=== PATIENT | female | born 1945 | race Hispanic/Latino ===

== ENCOUNTER 2017-11-14 09:26 | Observation (INO) | payer MEDICARE, OTHER ==
--- NOTE | 2017-11-14 10:51 | RAD ---
Date of service: 11/14/2017 HISTORY: hx of anemia COMPARISON: No prior. FINDINGS: LUNGS: No active pulmonary disease. PLEURA: No significant pleural effusion identified, no pneumothorax apparent. CARDIOVASCULAR: Normal. OSSEOUS STRUCTURES: No significant abnormalities. VISUALIZED UPPER ABDOMEN: Normal. OTHER FINDINGS: None. IMPRESSION: No active disease.
--- NOTE | 2017-11-14 10:51 | ED PDOC ---
Arrival/HPI - General Chief Complaint: Abnormal Labs Time Seen by Provider: 11/14/17 09:35 Historian: Patient - History of Present Illness Narrative History of Present Illness (Text): 11/14/17 10:49 72-year-old female sent in by her primary care physician Dr. Galo for evaluation of low hemoglobin. Patient denies chest pain or shortness of breath. She denies fevers or chills. She denies dizziness or weakness. She denies nausea vomiting diarrhea or constipation. She denies bloody stools. She denies dark tarry stools. Patient denies dyspnea on exertion. Patient denies any complaints. Past Medical History - Provider Review Nursing Documentation Reviewed: Yes - Travel History Have you recently traveled outside [place] w/in the past 3 mons?: No - Cardiac Hx Cardiac Disorders: Yes Hx Hypertension: Yes - Pulmonary Hx Respiratory Disorders: Yes Hx Chronic Obstructive Pulmonary Disease (COPD): Yes - Neurological Hx Neurological Disorder: No - HEENT Hx HEENT Disorder: No - Renal Hx Renal Disorder: No - Endocrine/Metabolic Hx Endocrine Disorders: No - Hematological/Oncological Hx Blood Disorders: No - Integumentary Hx Dermatological Disorder: No - Musculoskeletal/Rheumatological Hx Musculoskeletal Disorders: Yes Other/Comment: L LEG PAIN - Gastrointestinal Hx Gastrointestinal Disorders: No - Genitourinary/Gynecological Hx Genitourinary Disorders: No - Psychiatric Hx Psychophysiologic Disorder: No Hx Physical Abuse: No Hx Substance Use: No - Surgical History Hx Coronary Stent: Yes Hx Hysterectomy: Yes - Anesthesia Hx Anesthesia: Yes - Suicidal Assessment Feels Threatened In Home Enviroment: No Family/Social History - Physician Review Nursing Documentation Reviewed: Yes Family/Social History: Unknown Family HX Smoking Status: Light Smoker < 10 Cigarettes Daily Hx Alcohol Use: No Hx Substance Use: No Allergies/Home Meds Allergies/Adverse Reactions: Allergies No Known Allergies Allergy (Verified 11/14/17 09:51) Home Medications: Home Meds Medication Instructions Recorded Confirmed Aspirin [Adult Low Dose Aspirin EC] 1 tab PO DAILY 11/14/17 11/14/17 No Known Home Med 11/14/17 11/14/17 Review of Systems - Review of Systems Constitutional: absent: Fatigue, Fevers Respiratory: absent: SOB, Cough Cardiovascular: absent: Chest Pain, Palpitations Gastrointestinal: absent: Abdominal Pain, Stool Changes, Constipation, Diarrhea , Nausea, Vomiting Genitourinary Female: absent: Hematuria Musculoskeletal: absent: Arthralgias, Back Pain, Neck Pain Skin: absent: Rash, Pruritis Neurological: absent: Headache, Dizziness Psychiatric: absent: Anxiety, Depression Physical Exam Vital Signs Reviewed: Yes Vital Signs Temp Pulse Resp BP Pulse Ox 11/14/17 09:52 98.6 F 83 17 127/69 100 Temperature: Afebrile Blood Pressure: Normal Pulse: Regular Respiratory Rate: Normal Appearance: Positive for: Well-Appearing, Non-Toxic, Comfortable Pain Distress: None Mental Status: Positive for: Alert and Oriented X 3 - Systems Exam Head: Present: Atraumatic Neck: Present: Normal Range of Motion Respiratory/Chest: Present: Clear to Auscultation, Good Air Exchange. No: Respiratory Distress, Accessory Muscle Use Cardiovascular: Present: Regular Rate and Rhythm, Normal S1, S2. No: Murmurs Abdomen: No: Tenderness, Rebound, Guarding Rectal: Present: Normal Rectal Tone. No: Occult Blood, Rectal Tenderness, Gross Blood, Melena Back: Present: Normal Inspection Upper Extremity: Present: Normal ROM Lower Extremity: Present: Normal ROM Neurological: Present: GCS=15, Speech Normal Skin: Present: Warm, Dry, Normal Color. No: Rashes Psychiatric: Present: Alert, Oriented x 3 Medical Decision Making ED Course and Treatment: 11/14/17 10:51 72yr old female sent in by PMD for anemia cbc hbg;7.6 cmp wnl INR cxr; wnl ekg; normal sinus rhythm at 76 bpm normal axis normal intervals no ST elevations ua; + leukocytes. pt with hemoglobin of: 7.6. Heme negative stools. Sent for blood transfusion obtained transfuse the patient 2 units. Patient was found to have UTI we'll give a dose of Rocephin IV. Case was discussed with Dr. Martin in depth excepts observational status admission for anemia. impression; anemia, UTI admit observational status to med/surg - Lab Interpretations Lab Results: 11/14/17 10:50 11/14/17 10:50 Lab Results 11/14/17 11:55: Urine Color Yellow, Urine Appearance Clear, Urine pH 5.5, Ur Specific Ray 1.015, Urine Protein Negative, Urine Glucose (UA) Negative, Urine Ketones Negative, Urine Blood Negative, Urine Nitrate Negative, Urine Bilirubin Negative, Urine Urobilinogen 0.2, Ur Leukocyte Esterase Moderate H, Urine RBC TEST NOT PERFORMED, Urine WBC 15 - 20, Ur Epithelial Cells 3 - 4, Urine Bacteria Mod 11/14/17 10:50: WBC 5.7, RBC 3.74, Hgb 7.6 L, Hct 26.7 L, MCV 71.4 L, MCH 20.3 L , MCHC 28.5 L, RDW 18.7 H, Plt Count 299, MPV 9.0, Gran % 79.3 H, Lymph % (Auto ) 13.9 L, [place] % (Auto) 4.7, Eos % (Auto) 1.4 L, Baso % (Auto) 0.7, Gran # 4.52 , Lymph # (Auto) 0.8 L, [place] # (Auto) 0.3, Eos # (Auto) 0.1, Baso # (Auto) 0.04 11/14/17 10:50: Blood Type Pending, Antibody Screen Pending, Crossmatch See Detail, BBK History Checked Patient has bt 11/14/17 10:50: Sodium 138, Potassium 5.0, Chloride 109 H, Carbon Dioxide 22, Anion Gap 13, BUN 13, Creatinine 0.6 L, Est GFR ( Amer) > 60, Est GFR ( Non-Af Amer) > 60, Random Glucose 98, Calcium 9.3, Total Bilirubin 0.4, AST 29, ALT 26, Alkaline Phosphatase 68, Lactate Dehydrogenase 634, Total Creatine Kinase 35, Troponin I < 0.01, Total Protein 6.5, Albumin 3.8, Globulin 2.6, Albumin/Globulin Ratio 1.5 11/14/17 10:50: PT 12.1, INR 1.05, APTT 25.9 - RAD Interpretation Radiology Orders: 11/14/17 10:12 CHEST PORTABLE [RAD] Stat - Medication Orders Current Medication Orders: Discontinued Medications Ceftriaxone Sodium (Rocephin 1 Gram Ivpb) 1 gm in 100 mls @ 200 mls/hr IVPB STAT STA PRN Reason: Protocol Stop: 11/14/17 13:11 Disposition/Present on Arrival - Present on Arrival Any Indicators Present on Arrival: No History of DVT/PE: No History of Uncontrolled Diabetes: No Urinary Catheter: No History of Decub. Ulcer: No History Surgical Site Infection Following: None - Disposition Have Diagnosis and Disposition been Completed?: Yes Diagnosis: Anemia, Urinary tract infection Disposition: HOSPITALIZED Disposition Time: 12:40 Patient Plan: Observation Condition: FAIR
[2017-11-14 11:05] LABS: BASO # 0.04 K/mm3 (0.0-2.0); BASO % 0.7 % (0.0-3.0); EOS # 0.1 (0.0-0.7); EOS % 1.4 % (1.5-5.0); GRAN # 4.52 (1.4-6.5); GRAN % 79.3 % (50.0-68.0); HEMOGLOBIN 7.6 g/dL (12.0-16.0); LYMPH # 0.8 (1.2-3.4); LYMPH % 13.9 % (22.0-35.0); MEAN CELL VOLUME 71.4 fl (80.0-105.0); MEAN CORPUSCULAR HEMOGLOBIN 20.3 pg (25.0-35.0); MEAN CORPUSCULAR HGB CONC 28.5 g/dl (31.0-37.0); MONO # 0.3 (0.1-0.6); MONO % 4.7 % (1.0-6.0); RBC 3.74 10^6/uL (3.5-6.1); RED CELL DISTRIBUTION WIDTH 18.7 % (11.5-14.5); WHITE BLOOD COUNT 5.7 10^3/ul (4.5-11.0)
[2017-11-14 11:15] LABS: INR 1.05; PARTIAL THROMBOPLASTIN TIME 25.9 Seconds (25.1-36.5); PROTHROMBIN TIME 12.1 SECONDS (9.4-12.5)
[2017-11-14 11:17] LABS: ALB/GLOB RATIO 1.5 (1.1-1.8); ALBUMIN 3.8 g/dL (3.0-4.8); BLOOD UREA NITROGEN 13 mg/dL (7-21); CALCIUM 9.3 mg/dL (8.4-10.5); GFR NON-AFRICAN AMERICAN > 60
[2017-11-14 11:21] LABS: ALT/SGPT 26 U/L (7-56); AST/SGOT 29 U/L (14-36)
[2017-11-14 11:28] LABS: TROPONIN I < 0.01 ng/mL
[2017-11-14 12:25] LABS: PH,URINE 5.5 (4.7-8.0); URINE BILIRUBIN NEGATIVE (NEGATIVE); URINE BLOOD NEGATIVE (NEGATIVE); URINE GLUCOSE (UA) NEGATIVE (NEGATIVE); URINE LEUKOCYTE ESTERASE MODERATE Leu/uL (NEGATIVE); URINE PROTEIN NEGATIVE mg/dL (<30 mg/dL); URINE UROBILINOGEN 0.2 E.U./dL (<1 E.U./dL)
[2017-11-14 12:26] LABS: URINE APPEARANCE CLEAR (CLEAR); URINE COLOR YELLOW (YELLOW)
[2017-11-14 12:29] LABS: URINE BACTERIA MOD (NEG); URINE WBC 15 - 20 /hpf (0-6)
[2017-11-14] MEDS ORDERED: cefTRIAXone 1 gm 1 GM/100 ML BAG IVPB STA (12:42)
[2017-11-14] MEDS ORDERED: Midazolam 2 MG/2 ML VIAL ONE (15:57)
[2017-11-14 16:50] VITALS: BMI 20.5
--- NOTE | 2017-11-14 20:51 | CARD ---
APPROVED REPORT Date of service: 11/14/2017 EKG Measurement Heart [id number] <Conclusion> Normal sinus rhythm Normal ECG
[2017-11-15 04:48] VITALS: RESP 18
[2017-11-15 06:46] VITALS: BP 136/73; PULSE 80; TEMP 97.8
--- NOTE | 2017-11-15 07:22 | CP.PCM.CON ---
<Renato Faust - Last Filed: 11/15/17 10:59> History of Present Illness - History of Present Illness History of Present Illness: GI Consult Note for Dr. Jacob's Service - Edwina PGY2 Reason for Consult: Anemia Mrs. Quintero is a 72 year old male with a past medical history significant for CAD s/p four NADEEN (last in 2012), HTN, HLD, COPD and tobacco abuse who presents after being found to have a low hemoglobin at her PMD's office. GI was consulted for evaluation for GI hemorrhage. Patient reports that she was seen in her PMD's office for routine health maintenance, which she admits that she does not do frequently, and was told that she had a low hemoglobin and should be seen in the ED for further evaluation. She denies ever being told that she was anemic in the past. She has never had an EGD or colonoscopy in the past because she refuses to have these done, including during this admission. Patient reports that she was offered Cologaurd as well but was unable to complete this. Currently, she denies illness, recent travel, sick contacts, weight loss, night sweats, fevers, chills, headache, lightheadedness, changes in vision, chest pain, SOB, abdominal pain, N/V/D/C, melena, hematemesis, changes in urine output, skin changes or any numbness/tingling/weakness of any extremity. PMH: CAD s/p four NADEEN (last in 2012), HTN, HLD, COPD and tobacco abuse PSH: Hysterectomy, Cardiac Cath Family History: CAD, HTN and DM2 Social History: Current smoker with 40 year pack smoking history: Denies any alcohol or illicit drug use Allergies: NKDA Home Medications: ASA and Nicoderm CQ PMD: Dr. Galo Review of Systems - Review of Systems Review of Systems: As stated in HPI, otherwise negative Past Patient History - Past Social History Smoking Status: Current Some Days Smoker - CARDIAC Hx Cardiac Disorders: Yes Hx Hypercholesterolemia: Yes Hx Hypertension: Yes Other/Comment: angioplasty/CAD - PULMONARY Hx Respiratory Disorders: Yes Hx Chronic Obstructive Pulmonary Disease (COPD): Yes Other/Comment: smoking 10-15 cig a day - NEUROLOGICAL Hx Neurological Disorder: No - HEENT Hx HEENT Problems: No - RENAL Hx Chronic Kidney Disease: No - ENDOCRINE/METABOLIC Hx Endocrine Disorders: No - HEMATOLOGICAL/ONCOLOGICAL Hx Blood Disorders: No Hx Anemia: Yes - INTEGUMENTARY Hx Dermatological Problems: No - MUSCULOSKELETAL/RHEUMATOLOGICAL Hx Musculoskeletal Disorders: No Hx Falls: No - GASTROINTESTINAL Hx Gastrointestinal Disorders: No - GENITOURINARY/GYNECOLOGICAL Hx Genitourinary Disorders: No Other/Comment: hysterectomy - PSYCHIATRIC Hx Psychophysiologic Disorder: No Hx Physical Abuse: No - SURGICAL HISTORY Hx Surgeries: Yes Hx Cardiac Catheterization: Yes Hx Coronary Stent: Yes Hx Hysterectomy: Yes Other/Comment: Angioplast with multiple stents insertion Left Anterior Descending Artery - ANESTHESIA Hx Anesthesia: Yes Meds Home Medications: Home Medication List Medication Instructions Recorded Confirmed Type Nicotine 7 mg/24 hr [Nicoderm CQ] 1 patch TD DAILY patch 11/15/17 Rx Allergies/Adverse Reactions: Allergies Allergy/AdvReac Type Severity Reaction Status Date / Time No Known Allergies Allergy Verified 11/14/17 09:51 - Medications Medications: Current Medications Nicotine (Nicoderm Cq) 1 patch TD DAILY SONNY Physical Exam - Constitutional Appears: Non-toxic, No Acute Distress - Head Exam Head Exam: ATRAUMATIC, NORMOCEPHALIC - Eye Exam Eye Exam: EOMI - Neck Exam Neck exam: Positive for: Full Rom - Respiratory Exam Respiratory Exam: NORMAL BREATHING PATTERN. absent: Accessory Muscle Use, Respiratory Distress - Cardiovascular Exam Cardiovascular Exam: +S1, +S2 - GI/Abdominal Exam GI & Abdominal Exam: Normal Bowel Sounds, Soft. absent: Bruit, Diminished Bowel Sounds, Distended, Firm, Guarding, Hernia, Hyperactive Bowel Sounds, Hypoactive Bowel Sounds, Mass, Organomegaly, Pulsatile Mass, Rebound, Rigid, Tenderness - Rectal Exam Rectal Exam: Deferred - Extremities Exam Extremities exam: Negative for: calf tenderness - Neurological Exam Neurological exam: Alert, Oriented x3 - Psychiatric Exam Psychiatric exam: Normal Affect, Normal Mood - Skin Skin Exam: Dry, Intact, Normal Color, Warm Results - Vital Signs Recent Vital Signs: Last Vital Signs Temp 97.8 F 11/15/17 06:45 Pulse 80 11/15/17 06:45 Resp 18 11/15/17 06:45 BP 136/73 11/15/17 06:45 Pulse Ox 100 11/14/17 16:01 - Labs Result Diagrams: 11/15/17 08:26 11/15/17 08:30 Assessment & Plan - Assessment and Plan (Free Text) Assessment: 72 year old male with a past medical history significant for CAD s/p four NADEEN ( last in 2012), HTN, HLD, COPD and tobacco abuse who presents after being found to have a low hemoglobin at her PMD's office. GI was consulted for evaluation for GI hemorrhage. Plan: -H/H 7.6/26.7 on admission -AM H/H at 10.1/33.7 s/p two units of pRBC's -Hemodynamically stable and VSS -FOBT negative -Heart Healthy Diet -CEA elevation noted GI Disposition: Patient refusing endoscopic work up at this time. After discussion with patient and patients primary, patient should have GI followup as an outpatient and be scheduled for outpatient EGD/Colonoscopy as soon as possible. The importance of this was stressed to the patient with patient verbally understanding and agreeing to do so. Patient seen and case discussed with attending, Dr. Jacob. - Date & Time Date: 11/15/17 Time: 07:21 <Srinivasan Jacob V - Last Filed: 11/15/17 23:38> Results - Vital Signs Recent Vital Signs: Last Vital Signs Temp 97.8 F 11/15/17 06:45 Pulse 80 11/15/17 06:45 Resp 18 11/15/17 06:45 BP 136/73 11/15/17 06:45 Pulse Ox 98 11/15/17 06:00 - Labs Result Diagrams: 11/15/17 08:26 11/15/17 08:30 Labs: Laboratory Results - last 24 hr 11/15/17 11/15/17 11/15/17 08:00 08:00 08:00 WBC RBC Hgb Hct MCV MCH MCHC RDW Plt Count MPV Gran % Lymph % (Auto) [place] % (Auto) Eos % (Auto) Baso % (Auto) Gran # Lymph # (Auto) [place] # (Auto) Eos # (Auto) Baso # (Auto) PT INR APTT Sodium Potassium Chloride Carbon Dioxide Anion Gap BUN Creatinine Est GFR ( Amer) Est GFR (Non-Af Amer) Random Glucose Calcium Iron 87 TIBC 434 % Saturation 20 Ferritin 8.1 Total Bilirubin AST ALT Alkaline Phosphatase Total Protein Albumin Globulin Albumin/Globulin Ratio Carcinoembryonic Ag 5.5 H Vitamin B12 Folate 11/15/17 11/15/17 11/15/17 08:00 08:26 08:30 WBC 4.6 RBC 4.50 Hgb 10.1 L D Hct 33.7 L MCV 74.9 L D MCH 22.4 L MCHC 30.0 L RDW 19.8 H Plt Count 258 MPV 8.9 Gran % 73.4 H Lymph % (Auto) 14.9 L [place] % (Auto) 8.1 H Eos % (Auto) 2.9 Baso % (Auto) 0.7 Gran # 3.34 Lymph # (Auto) 0.7 L [place] # (Auto) 0.4 Eos # (Auto) 0.1 Baso # (Auto) 0.03 PT INR APTT Sodium 140 Potassium 4.1 Chloride 107 Carbon Dioxide 23 Anion Gap 14 BUN 11 Creatinine 0.6 L Est GFR ( Amer) > 60 Est GFR (Non-Af Amer) > 60 Random Glucose 102 Calcium 9.1 Iron TIBC % Saturation Ferritin Total Bilirubin 0.8 AST 26 ALT 25 Alkaline Phosphatase 77 Total Protein 7.2 Albumin 4.2 Globulin 3.0 Albumin/Globulin Ratio 1.4 Carcinoembryonic Ag Vitamin B12 513 Folate 12.3 11/15/17 10:50 WBC RBC Hgb Hct MCV MCH MCHC RDW Plt Count MPV Gran % Lymph % (Auto) [place] % (Auto) Eos % (Auto) Baso % (Auto) Gran # Lymph # (Auto) [place] # (Auto) Eos # (Auto) Baso # (Auto) PT 12.3 INR 1.07 APTT 27.7 Sodium Potassium Chloride Carbon Dioxide Anion Gap BUN Creatinine Est GFR ( Amer) Est GFR (Non-Af Amer) Random Glucose Calcium Iron TIBC % Saturation Ferritin Total Bilirubin AST ALT Alkaline Phosphatase Total Protein Albumin Globulin Albumin/Globulin Ratio Carcinoembryonic Ag Vitamin B12 Folate Attending/Attestation - Attestation I have personally seen and examined this patient.: Yes I have fully participated in the care of the patient.: Yes I have reviewed all pertinent clinical information: Yes Notes (Text): This is an addendum to GI consult report dictated by the Band Edger.The patient was seen and evaluated earlier. Medical records, lab studies, imagings were reviewed. Last 24 hours events reviewed. Agreed with the above treatment plan as outlined in Band Edger 's notes with the addition of the following This patient refused CAT scan endoscopy and colonoscopy Risk of cancer explained Patient fully understood She did not want to go through further testing 11/15/17 23:37
[2017-11-15 08:15] VITALS: O2SAT 98
[2017-11-15 08:36] LABS: BASO # 0.03 K/mm3 (0.0-2.0); BASO % 0.7 % (0.0-3.0); EOS # 0.1 (0.0-0.7); EOS % 2.9 % (1.5-5.0); GRAN # 3.34 (1.4-6.5); GRAN % 73.4 % (50.0-68.0); HEMOGLOBIN 10.1 g/dL (12.0-16.0); LYMPH # 0.7 (1.2-3.4); LYMPH % 14.9 % (22.0-35.0); MEAN CELL VOLUME 74.9 fl (80.0-105.0); MEAN CORPUSCULAR HEMOGLOBIN 22.4 pg (25.0-35.0); MEAN PLATELET VOLUME 8.9 fl (7.0-11.0); MONO # 0.4 (0.1-0.6); MONO % 8.1 % (1.0-6.0); RBC 4.5 10^6/uL (3.5-6.1); RED CELL DISTRIBUTION WIDTH 19.8 % (11.5-14.5); WHITE BLOOD COUNT 4.6 10^3/ul (4.5-11.0)
[2017-11-15 08:47] LABS: IRON 87 ug/dL (45-180)
[2017-11-15 08:48] LABS: ALB/GLOB RATIO 1.4 (1.1-1.8); ALBUMIN 4.2 g/dL (3.0-4.8); ALT/SGPT 25 U/L (7-56); AST/SGOT 26 U/L (14-36); BLOOD UREA NITROGEN 11 mg/dL (7-21); CALCIUM 9.1 mg/dL (8.4-10.5); GFR NON-AFRICAN AMERICAN > 60
[2017-11-15 08:56] LABS: % IRON SATURATION 20 % (20-55); TOTAL IRON BINDING CAPACITY 434 ug/dL (265-497)
--- NOTE | 2017-11-15 09:56 | CON ---
DATE: 11/15/2017 CONSULT REQUESTED BY: Delgado Martin MD. HISTORY OF PRESENT ILLNESS: Ms. Quintero is a 72-year-old female, referred to ED by Dr. Galo for severe anemia. Hemoglobin was 7.6 in the ED. Denies any bleeding per rectum. No nausea. No vomiting. No chills. No rigors. No exertional dyspnea. PAST MEDICAL HISTORY: Hypertension, COPD. PAST SURGICAL HISTORY: Coronary artery stent placement, hysterectomy. PERSONAL HISTORY: Light smoker. No history of alcohol abuse. FAMILY HISTORY: Not contributory. ALLERGIES: NO KNOWN DRUG ALLERGIES. HOME MEDICATIONS: Aspirin. REVIEW OF SYSTEMS: As per HPI. Rest of 12-point review of systems reviewed negative. PHYSICAL EXAMINATION: GENERAL: Comfortable in bed, in no acute distress. VITAL SIGNS: Temperature 98.6, heart rate 83 per minute, respiratory rate 17 per minute, blood pressure 127/69, pulse ox is 100% on room air. HEENT: Pallor positive. NECK: No lymphadenopathy. CHEST: Air entry present and equal, bilateral. No added sounds. CARDIOVASCULAR: S1 and S2 normal. No murmur. No gallop. ABDOMEN: Soft, nontender. No hepatosplenomegaly. EXTREMITY: No edema. SKIN: Warm, dry. Normal. SPINE: Nontender. NEUROLOGIC: Alert and oriented x3. No focal sensorimotor deficit. LABORATORY DATA: Last white count 12.6, hemoglobin 7.6, hematocrit 26.7, MCV 71, platelet 299. Hemoglobin improved to 10.1 today after 2 units of blood transfusion. Sodium 140, potassium 4.1, creatinine 0.8, iron 87, iron saturation 20, total bilirubin 0.8. MEDICATIONS: Nicoderm patch, received one dose of ceftriaxone. ASSESSMENT AND PLAN: Severe anemia, microcytic. Iron studies within normal limits. Received 2 units of blood transfusion. Hemoglobin improved to 10. Antibody screen positive. She needs compatible blood. Transfusion done yesterday. No reaction. Stool occult blood. GI consultation, Dr. Jacob requested for severe anemia. B12, folate level to be done. Iron studies within normal limits. We will repeat the iron studies. Clinical picture is consistent with the iron-deficiency anemia. It is microcytic. Blood pressure controlled. History of hypertension, not on any medications. Aspirin on hold for severe anemia. We will continue to follow closely. We will also do a CEA. Thank you, Dr. Martin for allowing us to participate in Ms. Quintero's care. Nathaila Dahl MD [facility]
[2017-11-15 11:20] LABS: INR 1.07; PARTIAL THROMBOPLASTIN TIME 27.7 Seconds (25.1-36.5); PROTHROMBIN TIME 12.3 SECONDS (9.4-12.5)
--- NOTE | 2017-11-15 15:36 | CP.PCM.HP ---
<Joey Powers - Last Filed: 11/15/17 15:38> History of Present Illness - History of Present Illness History of Present Illness: 72 year old female with past medical history of CAD s/p stent placement, HLD, and HTN presents to the hospital after low hemoglobin found on outpatient blood work. Patient came to ED with low hemoglobin. Patient was given 2 units of blood in ED. Patient states at home, she did not feel any symptoms. Patient denied chest pain, shortness of breath, syncope, palpitations, nausea, vomiting , diarrhea, fever, chills, changes in vision, dysuria. PMH: CAD s/p four NADEEN (last in 2012), HTN, HLD PSH: Hysterectomy, Cardiac Cath Family History: CAD, HTN and DM2 Social History: Current smoker with 40 year pack smoking history. Denies alcohol or illicit drug use Allergies: NKDA Medications: ASA Present on Admission - Present on Admission Any Indicators Present on Admission: No Review of Systems - Review of Systems Review of Systems: 12 point ROS as per HPI, otherwise negative Past Patient History - Past Social History Smoking Status: Current Some Days Smoker - CARDIAC Hx Cardiac Disorders: Yes Hx Hypercholesterolemia: Yes Hx Hypertension: Yes Other/Comment: angioplasty/CAD - PULMONARY Hx Respiratory Disorders: Yes Hx Chronic Obstructive Pulmonary Disease (COPD): Yes Other/Comment: smoking 10-15 cig a day - NEUROLOGICAL Hx Neurological Disorder: No - HEENT Hx HEENT Problems: No - RENAL Hx Chronic Kidney Disease: No - ENDOCRINE/METABOLIC Hx Endocrine Disorders: No - HEMATOLOGICAL/ONCOLOGICAL Hx Blood Disorders: No Hx Anemia: Yes - INTEGUMENTARY Hx Dermatological Problems: No - MUSCULOSKELETAL/RHEUMATOLOGICAL Hx Musculoskeletal Disorders: No Hx Falls: No - GASTROINTESTINAL Hx Gastrointestinal Disorders: No - GENITOURINARY/GYNECOLOGICAL Hx Genitourinary Disorders: No Other/Comment: hysterectomy - PSYCHIATRIC Hx Psychophysiologic Disorder: No Hx Physical Abuse: No - SURGICAL HISTORY Hx Surgeries: Yes Hx Cardiac Catheterization: Yes Hx Coronary Stent: Yes Hx Hysterectomy: Yes Other/Comment: Angioplast with multiple stents insertion Left Anterior Descending Artery - ANESTHESIA Hx Anesthesia: Yes Meds Home Medications: Home Medication List Medication Instructions Recorded Confirmed Type Nicotine 7 mg/24 hr [Nicoderm CQ] 1 patch TD DAILY patch 11/15/17 Rx Allergies/Adverse Reactions: Allergies Allergy/AdvReac Type Severity Reaction Status Date / Time No Known Allergies Allergy Verified 11/14/17 09:51 Physical Exam - Constitutional Appears: Non-toxic, No Acute Distress - Head Exam Head Exam: ATRAUMATIC, NORMAL INSPECTION, NORMOCEPHALIC - Eye Exam Eye Exam: EOMI, Normal appearance - ENT Exam ENT Exam: Mucous Membranes Moist, Normal Exam - Respiratory Exam Respiratory Exam: Clear to Auscultation Bilateral, NORMAL BREATHING PATTERN - Cardiovascular Exam Cardiovascular Exam: RRR, +S1, +S2 - GI/Abdominal Exam GI & Abdominal Exam: Normal Bowel Sounds, Soft. absent: Tenderness - Extremities Exam Extremities exam: Positive for: normal inspection. Negative for: calf tenderness, pedal edema - Neurological Exam Neurological exam: Alert, CN II-XII Intact, Oriented x3 - Psychiatric Exam Psychiatric exam: Normal Affect, Normal Mood - Skin Skin Exam: Intact, Normal Color, Warm Results - Vital Signs Recent Vital Signs: Last Vital Signs Temp 97.8 F 11/15/17 06:45 Pulse 80 11/15/17 06:45 Resp 18 11/15/17 06:45 BP 136/73 11/15/17 06:45 Pulse Ox 98 11/15/17 06:00 - Labs Result Diagrams: 11/15/17 08:26 11/15/17 08:30 Labs: Laboratory Results - last 24 hr 11/15/17 11/15/17 11/15/17 08:00 08:00 08:00 WBC RBC Hgb Hct MCV MCH MCHC RDW Plt Count MPV Gran % Lymph % (Auto) [place] % (Auto) Eos % (Auto) Baso % (Auto) Gran # Lymph # (Auto) [place] # (Auto) Eos # (Auto) Baso # (Auto) PT INR APTT Sodium Potassium Chloride Carbon Dioxide Anion Gap BUN Creatinine Est GFR ( Amer) Est GFR (Non-Af Amer) Random Glucose Calcium Iron 87 TIBC 434 % Saturation 20 Ferritin 8.1 Total Bilirubin AST ALT Alkaline Phosphatase Total Protein Albumin Globulin Albumin/Globulin Ratio Carcinoembryonic Ag 5.5 H 11/15/17 11/15/17 11/15/17 08:26 08:30 10:50 WBC 4.6 RBC 4.50 Hgb 10.1 L D Hct 33.7 L MCV 74.9 L D MCH 22.4 L MCHC 30.0 L RDW 19.8 H Plt Count 258 MPV 8.9 Gran % 73.4 H Lymph % (Auto) 14.9 L [place] % (Auto) 8.1 H Eos % (Auto) 2.9 Baso % (Auto) 0.7 Gran # 3.34 Lymph # (Auto) 0.7 L [place] # (Auto) 0.4 Eos # (Auto) 0.1 Baso # (Auto) 0.03 PT 12.3 INR 1.07 APTT 27.7 Sodium 140 Potassium 4.1 Chloride 107 Carbon Dioxide 23 Anion Gap 14 BUN 11 Creatinine 0.6 L Est GFR ( Amer) > 60 Est GFR (Non-Af Amer) > 60 Random Glucose 102 Calcium 9.1 Iron TIBC % Saturation Ferritin Total Bilirubin 0.8 AST 26 ALT 25 Alkaline Phosphatase 77 Total Protein 7.2 Albumin 4.2 Globulin 3.0 Albumin/Globulin Ratio 1.4 Carcinoembryonic Ag Assessment & Plan - Assessment and Plan (Free Text) Plan: 1. Microcytic anemia s/p transfusion 2. HTN 3. HLD 4. Tobacco use 5. Noncompliance Patient received units 2 of PRBC's in the ED and responded appropriately. Previous discharge summaries and labs reviewed. Discussed with patient this morning about the possibility of endoscopic interventions to check for any signs of bleeding. Patient states she will not have any EGD's or colonoscopies. She states she understands the consequences of possible cancer, infection, or that are involved with no obtaining these studies. Patient will be discharged and she will follow up with PMD within 1 week. Patent informed of urgent need for GI follow up outpatient. Patient encouraged to stop tobacco use. Priya, PGY-3 <Delgado Martin S - Last Filed: 11/15/17 20:52> Results - Vital Signs Recent Vital Signs: Last Vital Signs Temp 97.8 F 11/15/17 06:45 Pulse 80 11/15/17 06:45 Resp 18 11/15/17 06:45 BP 136/73 11/15/17 06:45 Pulse Ox 98 11/15/17 06:00 - Labs Result Diagrams: 11/15/17 08:26 11/15/17 08:30 Labs: Laboratory Results - last 24 hr 11/15/17 11/15/17 11/15/17 08:00 08:00 08:00 WBC RBC Hgb Hct MCV MCH MCHC RDW Plt Count MPV Gran % Lymph % (Auto) [place] % (Auto) Eos % (Auto) Baso % (Auto) Gran # Lymph # (Auto) [place] # (Auto) Eos # (Auto) Baso # (Auto) PT INR APTT Sodium Potassium Chloride Carbon Dioxide Anion Gap BUN Creatinine Est GFR ( Amer) Est GFR (Non-Af Amer) Random Glucose Calcium Iron 87 TIBC 434 % Saturation 20 Ferritin 8.1 Total Bilirubin AST ALT Alkaline Phosphatase Total Protein Albumin Globulin Albumin/Globulin Ratio Carcinoembryonic Ag 5.5 H Vitamin B12 Folate 11/15/17 11/15/17 11/15/17 08:00 08:26 08:30 WBC 4.6 RBC 4.50 Hgb 10.1 L D Hct 33.7 L MCV 74.9 L D MCH 22.4 L MCHC 30.0 L RDW 19.8 H Plt Count 258 MPV 8.9 Gran % 73.4 H Lymph % (Auto) 14.9 L [place] % (Auto) 8.1 H Eos % (Auto) 2.9 Baso % (Auto) 0.7 Gran # 3.34 Lymph # (Auto) 0.7 L [place] # (Auto) 0.4 Eos # (Auto) 0.1 Baso # (Auto) 0.03 PT INR APTT Sodium 140 Potassium 4.1 Chloride 107 Carbon Dioxide 23 Anion Gap 14 BUN 11 Creatinine 0.6 L Est GFR ( Amer) > 60 Est GFR (Non-Af Amer) > 60 Random Glucose 102 Calcium 9.1 Iron TIBC % Saturation Ferritin Total Bilirubin 0.8 AST 26 ALT 25 Alkaline Phosphatase 77 Total Protein 7.2 Albumin 4.2 Globulin 3.0 Albumin/Globulin Ratio 1.4 Carcinoembryonic Ag Vitamin B12 513 Folate 12.3 11/15/17 10:50 WBC RBC Hgb Hct MCV MCH MCHC RDW Plt Count MPV Gran % Lymph % (Auto) [place] % (Auto) Eos % (Auto) Baso % (Auto) Gran # Lymph # (Auto) [place] # (Auto) Eos # (Auto) Baso # (Auto) PT 12.3 INR 1.07 APTT 27.7 Sodium Potassium Chloride Carbon Dioxide Anion Gap BUN Creatinine Est GFR ( Amer) Est GFR (Non-Af Amer) Random Glucose Calcium Iron TIBC % Saturation Ferritin Total Bilirubin AST ALT Alkaline Phosphatase Total Protein Albumin Globulin Albumin/Globulin Ratio Carcinoembryonic Ag Vitamin B12 Folate Assessment & Plan - Assessment and Plan (Free Text) Plan: Pt seen and examined. I have reviewed the note of the medical front desk coordinator and agree with it. I have discussed the assessment and plan with the resident. I have reviewed the patient's labs and medications. Pt with anemia of unknown etiology. She received 2 units of PRBCs. She is refusing CT Abd/Pelvis, endoscopy, colonoscopy. She understands that there is a risk of underlying illness that can be missed. Spoke to GI.
[2017-11-15 16:26] LABS: FOLATE 12.3 ng/mL
== END 2017-11-15 14:09 | disposition home or self-care (01) ==
LOC: ED 09:26 → ERH 12:42 → 5RNO 16:18
PROVIDERS: ADMIT Internal Medicine Nephrology; ATTEND Internal Medicine Nephrology
DX: D50.9 Iron deficiency anemia, unspecified (principal); I25.10 Atherosclerotic heart disease of native coronary artery without angina pectoris; I10 Essential (primary) hypertension; N39.0 Urinary tract infection, site not specified; E78.5 Hyperlipidemia, unspecified; E78.00 Pure hypercholesterolemia, unspecified; F17.210 Nicotine dependence, cigarettes, uncomplicated; J44.9 Chronic obstructive pulmonary disease, unspecified; R19.5 Other fecal abnormalities; Z79.82 Long term (current) use of aspirin; Z95.5 Presence of coronary angioplasty implant and graft; Z90.710 Acquired absence of both cervix and uterus
CPT/HCPCS: 36415; 36430; 71045; 80053; 81001; 82378; 82550; 82607; 82728; 82746; 83540; 83550; 83615; 84484; 85025; 85610; 85730; 86850; 86860; 86870; 86900; 86920; 86921; 86922; 87086; 93005; 99285; G0378; J0696; P9016